=== PATIENT | male | born 1950 | race Caucasian/White ===

== ENCOUNTER 2017-04-15 08:48 | Day surgery (SDC) | payer BC, MEDICARE ==
[2017-04-13 16:29] LABS: BASOPHILS % (AUTO) 0.5 % (0-1); EOSINOPHILS # (AUTO) 0.2 X10'3 (0-0.9); EOSINOPHILS % (AUTO) 2.7 % (0-6); LYMPHOCYTES # (AUTO) 2.5 X10'3 (1.1-4.8); LYMPHOCYTES % (AUTO) 28.3 % (21-51); MEAN CORPUSCULAR HEMOGLOBIN 27.3 PG (27.0-31.0); MEAN CORPUSCULAR HGB CONC 34.2 % (33.0-36.5); MEAN CORPUSCULAR VOLUME 79.9 FL (78-98); MEAN PLATELET VOLUME 7.8 FL (7.4-10.4); MONOCYTES # (AUTO) 0.5 X10'3 (0-0.9); MONOCYTES % (AUTO) 5.8 % (2-12); NEUTROPHILS # (AUTO) 5.5 X10'3 (1.8-7.7); NEUTROPHILS % (AUTO) 62.7 % (42-75); PRE OP HEMOGLOBIN 15.7 g/dL (14.0-17.9); PRE OP PLATELET COUNT 244 X10'3 (140-440); RED BLOOD COUNT 5.76 X10'6 (4.70-6.10)
[2017-04-13 16:47] LABS: ALBUMIN 3.8 G/DL (3.4-5.0); ALBUMIN/GLOBULIN RATIO 1.2 (1.1-1.5); ALKALINE PHOSPHATASE 61 IU/L (46-116); BLOOD UREA NITROGEN 26 MG/DL (7-18); BUN/CREATININE RATIO 21.7 (5.4-32.0); CALCIUM 8.9 MG/DL (8.5-10.1); CHLORIDE 104 MMOL/L (99-107); PRE OP ALT 25 U/L (30-65); PRE OP ANION GAP 9 (8-16); PRE OP AST 16 U/L (10-37); PRE OP BILIRUB, TOTAL 0.5 MG/DL (0.0-1.0); PRE OP GLUCOSE 105 MG/DL (70-104); PRE OP POTASSIUM 4.4 MMOL/L (3.4-5.1); PRE OP SODIUM 139 MMOL/L (135-145); TOTAL CARBON DIOXIDE 25.6 MMOL/L (24-32); TOTAL PROTEIN 7.1 G/DL (6.4-8.2); eGFR 60 ML/MIN
[~2017-04-15] VITALS: Ht 170.2 cm; Wt 88.5 kg
[2017-04-15] VITALS (9 sets, daily range): BP systolic 121–157; BP diastolic 75–94
[~2017-04-15 08:48] MED LIST: NO HOME MEDS; cefazolin/dext.iso 2gm/50ml 50 ML IV ONE; famotidine 20mg tablet PO ONE
[2017-04-15] MEDS ORDERED: BUPIVAcaine/PF 2.5 mg/ml (0.25%) 30ml vial ONE (11:49)
[2017-04-15] MEDS ORDERED: ceFAZolin 1000mg inj ONE (11:49)
[2017-04-15] MEDS ORDERED: sevoflurane 250ml liquid IH ONE (12:00)
[2017-04-15] MEDS ORDERED: midazolam 2 mg/2 ml injection ONE (12:13)
[2017-04-15] MEDS ORDERED: fentaNYL/PF 50MCG/1 ML 2ML syringe ONE ×2 (12:13→12:41)
[2017-04-15] MEDS ORDERED: ringers solution, lacted 1,000 ML IV SCH (12:56)
[2017-04-15] MEDS ORDERED: ondansetron/PF 4mg/2ml inj ONE (12:59)
[2017-04-15] MEDS ORDERED: rocuronium 10mg/ml inj IV ONE (12:59)
[2017-04-15] MEDS ORDERED: LIDOcaine 2% (20mg/ml) 5ml vial ONE (12:59)
[2017-04-15] MEDS ORDERED: glycopyrrolate 0.2mg/ml inj ONE (12:59)
[2017-04-15] MEDS ORDERED: propofol inj 20 ML IV ONE (12:59)
[2017-04-15] MEDS ORDERED: dexamethasone sod phosphate 4mg/ml inj. ONE (12:59)
[2017-04-15] MEDS ORDERED: HYDROmorphone 1 mg/ml syringe IV PRN ×2 (13:00)
[2017-04-15] MEDS ORDERED: ondansetron/PF 4mg/2ml inj IV PRN (13:00)
[2017-04-15] MEDS ORDERED: meperidine/PF 25mg/ml syringe IV PRN (13:00)
[2017-04-15] MEDS ORDERED: meperidine/PF 50mg/ml syringe ONE (13:14)
[2017-04-15] MEDS ORDERED: hydrALAZINE 20mg/ml inj. IV ONE (13:22)
[2017-04-15] MEDS: meperidine/PF 25mg/ml syringe IV PRN ×3 (13:40→14:01)
[2017-04-15] MEDS ORDERED: labetalol 5mg/ml 20ml inj. IV ONE (14:38)
== END 2017-04-15 14:30 | disposition home or self-care (01) ==
LOC: PAS 08:48
PROVIDERS: ATTEND Surgery
DX: K42.9 Umbilical hernia without obstruction or gangrene (principal); Z86.73 Personal history of transient ischemic attack (TIA), and cerebral infarction without residual deficits; Z79.82 Long term (current) use of aspirin; Z88.6 Allergy status to analgesic agent; Z88.8 Allergy status to other drugs, medicaments and biological substances; F17.210 Nicotine dependence, cigarettes, uncomplicated
CPT/HCPCS: 36415; 49652; 80053; 85025; 93005; C1713; C1758; C1781; J0360; J0690; J1100; J2001; J2175; J2250; J2405; J2704; J3010; J3490; J7120; A7000